=== PATIENT | female | born 1960 | race Caucasian/White ===

== ENCOUNTER → 2016-09-24 | Outpatient (CLI) | payer MEDICAID ==
--- NOTE | 2016-09-24 14:20 | MA ---
Bilateral Screening Digital Mammograms with iCAD Clinical Indications: Routine screening mammograms. Technique: Standard digital cephalocaudal and mediolateral oblique projections were obtained. [facility]. Comparison: February 2011, March 2009, December 2006 Breast Parenchymal Density: B Findings: Possible focal architectural distortion upper left breast. The remainder of the left and ri ght breast are stable. Impression: Architectural distortion left breast Recommendation: Diagnostic mammogram with spot compression views and true lateral view. If persistent , proceed to ultrasound at the discretion of the interpreting radiologist. BI-RADS 0. Additional imaging left breast. The patients information is entered into a reminder system with a target due date for her next mammog bassam. Negative mammography should not preclude additional workup of a clinically suspicious finding.
== END ==
LOC: FIMAGING 13:29
DX: Z12.31 Encounter for screening mammogram for malignant neoplasm of breast (principal)
CPT/HCPCS: G0202

== ENCOUNTER → 2016-10-01 | Outpatient (CLI) | payer MEDICAID ==
--- NOTE | 2016-10-01 13:35 | MA ---
Diagnostic Digital Left Mammogram History: Possible architectural distortion. Comparison: Screening mammogram September 24, 2016. In February 2011 Technique: 3 spot compression views, a true lateral view and off midline CC views by 5 degrees. Density: B Findings: Architectural distortion does not persist and was likely related to overlapping normal pare nchymal structures. The breast pattern looks similar to 2010.. Impression: Negative left breast. BI-RADS 1 Recommendation: Return to screening mammography of both breasts in September 2017. Results and recommendation were communicated to the patient at the time of the examination.
== END ==
LOC: CIMAGING 12:37
DX: Z03.89 Encounter for observation for other suspected diseases and conditions ruled out (principal)
CPT/HCPCS: G0206